=== PATIENT | female | born 1990 | race Two or more races ===

== ENCOUNTER → 2024-03-01 | Outpatient (CLI) | payer BC, MEDICAID, SELFPAY ==
--- NOTE | 2024-03-01 12:40 | XR_ITS ---
Examination: Shoulder,left, 3 views Technique: Shoulder AP internal rotation, AP external rotation, Y view shoulder, 3 views Exam date and time :March 01, 2024 1309 hours INDICATIONS: Shoulder pain months. FINDINGS: No shoulder fracture or dislocation Mild narrowing glenohumeral joint No calcific tendinitis IMPRESSION: Mild narrowing glenohumeral joint
== END | disposition home or self-care (01) ==
PROVIDERS: PCP Family Medicine; Referring Provider Nurse Practitioner Family; Visit Provider Nurse Practitioner Family
DX: M25.812 Other specified joint disorders, left shoulder (principal)
CPT/HCPCS: 73030